=== PATIENT | female | born 1990 | race Hispanic/Latino ===

== ENCOUNTER 2021-04-24 08:01 | Emergency (ER) | payer MEDICAID, OTHER ==
[~2021-04-24] VITALS: Ht 157.5 cm; Wt 114.3 kg
[~2021-04-24 08:01] MED LIST: PREN1TAB26 PO
[2021-04-24] MEDS ORDERED: ACETAMINOPHEN 325 MG TAB PO ONE (08:30)
[2021-04-24] MEDS ORDERED: NAPR-1196 PO (09:53)
[2021-04-24] MEDS ORDERED: CYCL10TA16 PO (09:53)
[2021-04-24 10:06] VITALS: BP 132/81
== END 2021-04-24 10:09 | disposition home or self-care (01) ==
LOC: EDH 08:01
DX: S76.011A Strain of muscle, fascia and tendon of right hip, initial encounter (principal); W01.0XXA Fall on same level from slipping, tripping and stumbling without subsequent striking against object, initial encounter; Y93.89 Activity, other specified; Y92.89 Other specified places as the place of occurrence of the external cause; Y99.8 Other external cause status
CPT/HCPCS: 73522; 81025

== ENCOUNTER 2022-09-10 19:23 | Emergency (ER) | payer OTHER ==
[~2022-09-10] VITALS: Ht 152.4 cm; Wt 112.9 kg
[~2022-09-10 19:23] MED LIST changes: +CYCL10TA16 PO; +NAPR-1196 PO
[2022-09-10 20:00] VITALS: BP 171/87
== END 2022-09-10 22:11 | disposition home or self-care (01) ==
LOC: EDH 19:23
DX: M79.642 Pain in left hand (principal); Z91.040 Latex allergy status; Z79.899 Other long term (current) drug therapy; Z98.890 Other specified postprocedural states
CPT/HCPCS: 99281

== ENCOUNTER 2023-04-30 09:40 | Inpatient (IN) | payer OTHER ==
[~2023-04-30] VITALS: Ht 157.5 cm; Wt 109.9 kg
[2023-04-30 10:04] LABS: BASOPHILS % (AUTO) 0.4 % (0.0-5.0); EOSINOPHILS # (AUTO) 0.23 K/uL (0.00-0.70); EOSINOPHILS % (AUTO) 0.9 % (0.0-8.0); HEMATOCRIT 32.4 % (36-48); LYMPHOCYTES # (AUTO) 1.8 K/uL (1.0-4.8); LYMPHOCYTES % (AUTO) 6.7 % (21.0-51.0); MEAN CORPUSCULAR VOLUME 88.3 fL (79-99); MONOCYTES # (AUTO) 1.3 K/uL (0.1-1.0); MONOCYTES % (AUTO) 4.7 % (3.0-13.0); NEUTROPHILS # (AUTO) 23.2 K/uL (1.8-7.7); NEUTROPHILS % (AUTO) 86.2 % (40.0-77.0); PLATELET COUNT (AUTO) 676 K/uL (130-400); RED BLOOD CELL COUNT(AUTO) 3.67 MIL/uL (4.00-5.50); RED CELL DISTRIBUTION WIDTH 13.2 % (11.0-15.5); WHITE BLOOD COUNT (AUTO) 26.9 K/uL (4.8-10.8)
[2023-04-30 10:16] LABS: INR 1.08 (0.85-1.15); PROTHROMBIN TIME 12.5 SEC (9.6-11.6)
[2023-04-30 10:17] LABS: PARTIAL THROMBOPLASTIN TIME 31.9 SEC (26.3-35.5)
[2023-04-30 10:22] LABS: CREATININE 0.7 mg/dL (0.5-1.5); POTASSIUM 3.2 mmol/L (3.5-5.1)
[2023-04-30 10:27] LABS: ALBUMIN 2.3 g/dL (3.5-5.0); BILIRUBIN,TOTAL 1.6 mg/dL (0.2-1.0); TOTAL PROTEIN, SERUM 8.1 g/dL (6.0-8.3)
[2023-04-30] MEDS ORDERED: HYDROMORPHONE 1 MG INJ ONE (10:51)
[2023-04-30] MEDS ORDERED: ACETAMINOPHEN 325 MG TAB ONE (10:51)
[2023-04-30 10:53] VITALS: TEMP 102
[2023-04-30] MEDS ORDERED: ACETAMINOPHEN 325 MG TAB PO ONE (11:00)
[2023-04-30] MEDS ORDERED: HYDROMORPHONE 1 MG INJ IVP ONE (11:00)
[2023-04-30] MEDS ORDERED: ZOSYN 3.375GM +NS 50ML IV ONE (13:00)
[2023-04-30] MEDS ORDERED: VANCOMYCIN KIT 1 GM/250 ML IV.KIT IV ONE (13:00)
[2023-04-30] MEDS ORDERED: LACTATED RINGERS 1000ML 1,000 ML IV ONE (13:00)
[2023-04-30] MEDS ORDERED: DiphenhydrAMINE HCL 50 MG/ML VIAL IV PRN (13:30)
[2023-04-30] MEDS ORDERED: LACTULOSE 20 GM/30 ML UDCUP PO PRN (13:30)
[2023-04-30] MEDS ORDERED: POTASSIUM CHLORIDE 10% ELIXIR 20 MEQ/15 ML UDCUP PO PRN (13:30)
[2023-04-30] MEDS ORDERED: VANCOMYCIN PROTOCOL PER PHARMACY IV PRN (13:30)
[2023-04-30] MEDS ORDERED: ACETAMINOPHEN 325 MG TAB PO PRN ×2 (13:30)
[2023-04-30] MEDS ORDERED: GUAIFENESIN-DM 200/20 MG 10 ML PO PRN (13:30)
[2023-04-30] MEDS ORDERED: NITROGLYCERIN 0.4 MG SL TAB SL PRN (13:30)
[2023-04-30] MEDS ORDERED: POTASSIUM CHLORIDE 20MEQ/100ML 100 ML IV PRN (13:30)
[2023-04-30] MEDS ORDERED: DIPHENHYDRAMINE HCL 25 MG CAPSULE PO PRN (13:30)
[2023-04-30] MEDS ORDERED: ONDANSETRON 4MG INJ IV PRN (13:30)
[2023-04-30] MEDS ORDERED: HYDROCODONE/ACETAMINOPHEN 5/325 MG TAB PO PRN (13:30)
[2023-04-30] MEDS ORDERED: MAG/ALUM/SIMETH 30 ML UDCUP PO PRN (13:30)
[2023-04-30] MEDS ORDERED: MAGNESIUM 2GM PREMIX 50ML 50 ML IV PRN (13:30)
[2023-04-30] MEDS: 0.9%NACL 1000ML 1,000 ML IV SCH ×2 (13:47→21:45)
[2023-04-30 14:44] LABS: APPEARANCE,URINE CLOUDY (CLEAR); BILIRUBIN,URINE NEGATIVE (NEGATIVE); COLOR,URINE YELLOW (YELLOW); GLUCOSE, URINE (UA) NEGATIVE (NEGATIVE); KETONES,URINE NEGATIVE (NEGATIVE); LEUKOCYTE ESTERASE ,URINE 500 Leu/uL (NEGATIVE); NITRATE,URINE NEGATIVE (NEGATIVE); OCCULT BLOOD,URINE MODERATE (NEGATIVE); PROTEIN,URINE 20 mg/dL (NEGATIVE); UROBILINOGEN,URINE 0.2 mg/dL (0.2-1.0)
[2023-04-30 14:45] LABS: ADD UA MICROSCOPIC YES
[2023-04-30 14:48] LABS: BACTERIA,URINE FEW /HPF (None Seen); MUCUS,URINE RARE LPF (None Seen); SQUAMOUS EPITHELIAL CELL,UR FEW /HPF (0-2); UNCLASSIFIED CRYSTAL 1 /HPF (None Seen)
[2023-04-30 15:18] LABS: AMPHET/METH SCREEN,URINE NEGATIVE (NEGATIVE); BARBITURATE SCREEN, URINE NEGATIVE (NEGATIVE); BENZODIAZEPINES SCREEN,URINE NEGATIVE (NEGATIVE); CANNABINOID SCREEN,URINE NEGATIVE (NEGATIVE); COCAINE SCREEN,URINE NEGATIVE (NEGATIVE); OPIATE SCREEN,URINE NEGATIVE (NEGATIVE); PHENCYCLIDINE SCREEN,URINE NEGATIVE (NEGATIVE)
[2023-04-30 15:26] LABS: ACETAMINOPHEN < 1 mcg/mL (10-30); SALICYLATE < 2.8 mg/dL (2.8-20.0)
[2023-04-30] MEDS: KCL 20 MEQ ERTAB PO PRN ×2 (16:05→18:30)
[2023-04-30 16:20] VITALS: BP 123/70; PULSE 115; RESP 16
[2023-04-30] MEDS: HYDROCODONE/ACETAMINOPHEN 5/325 MG TAB PO PRN ×2 (17:24→23:52)
[2023-04-30] MEDS ORDERED: COMPOUND IV REFRIGERATED 1 EACH IVSOLN MISC PRN (18:00)
[2023-04-30 20:00] VITALS: BP 111/65; PULSE 110; RESP 19
[2023-04-30] MEDS ORDERED: FAMOTIDINE 20MG VIAL IV PRN (21:00)
[2023-04-30] MEDS: VANCOMYCIN 1.25 GM/250 ML BAG 250 ML IV SCH (21:45)
[2023-04-30] MEDS: FAMOTIDINE 20MG TAB PO SCH (21:50)
[2023-04-30] MEDS: ZOSYN 3.375GM+NS 50ML 50 ML IV SCH (22:03)
[2023-04-30 23:44] VITALS: BP 110/75; PULSE 106; RESP 19
[2023-05-01] VITALS (8 sets, daily range): BP systolic 117–145; BP diastolic 54–88; PULSE 59–111; RESP 16–20; O2SAT 97
[2023-05-01] MEDS: 0.9%NACL 1000ML 1,000 ML IV SCH ×3 (02:10→14:05)
[2023-05-01 04:28] LABS: BASOPHILS # (AUTO) 0.06 K/uL (0.00-0.20); BASOPHILS % (AUTO) 0.4 % (0.0-5.0); EOSINOPHILS # (AUTO) 0.57 K/uL (0.00-0.70); EOSINOPHILS % (AUTO) 3.5 % (0.0-8.0); HEMATOCRIT 29.3 % (36-48); IMMATURE GRANULOCYTE ABSOLUTE 0.17 K/uL (0-1); LYMPHOCYTES # (AUTO) 1.5 K/uL (1.0-4.8); LYMPHOCYTES % (AUTO) 9.5 % (21.0-51.0); MEAN CORPUSCULAR HEMOGLOBIN 29.5 pg (27.0-33.0); MEAN CORPUSCULAR HGB CONC 32.4 g/dL (32.0-36.0); MONOCYTES # (AUTO) 0.8 K/uL (0.1-1.0); MONOCYTES % (AUTO) 4.9 % (3.0-13.0); NEUTROPHILS % (AUTO) 80.6 % (40.0-77.0); PLATELET COUNT (AUTO) 599 K/uL (130-400); RED BLOOD CELL COUNT(AUTO) 3.22 MIL/uL (4.00-5.50); RED CELL DISTRIBUTION WIDTH 13.2 % (11.0-15.5); WHITE BLOOD COUNT (AUTO) 16.1 K/uL (4.8-10.8)
[2023-05-01 04:32] LABS: HEMOGLOBIN A1C 5.1 % (4.0-6.0)
[2023-05-01 04:33] LABS: INR 1.06 (0.85-1.15); PROTHROMBIN TIME 12.3 SEC (9.6-11.6)
[2023-05-01 04:34] LABS: PARTIAL THROMBOPLASTIN TIME 31.9 SEC (26.3-35.5)
[2023-05-01 04:44] LABS: % IRON SATURATION 16.9 % (22-44)
[2023-05-01 04:50] LABS: ALBUMIN 1.7 g/dL (3.5-5.0); BILIRUBIN,TOTAL 0.6 mg/dL (0.2-1.0); CREATININE 0.6 mg/dL (0.5-1.5); MAGNESIUM 2.1 mg/dL (1.80-2.40); PHOSPHORUS 3.4 mg/dL (2.5-4.9); POTASSIUM 3.4 mmol/L (3.5-5.1); THYROID STIMULATING HORMONE 1.64 uIU/mL (0.36-3.74); TOTAL PROTEIN, SERUM 6.5 g/dL (6.0-8.3)
[2023-05-01 05:01] LABS: HIV 1&2 ANTIBODY Non-Reactive (Negative); HIV-1 p24 Antigen Non-Reactive (Negative)
[2023-05-01] MEDS: VANCOMYCIN 1.25 GM/250 ML BAG 250 ML IV SCH ×2 (06:07→13:00)
[2023-05-01] MEDS: ZOSYN 3.375GM+NS 50ML 50 ML IV SCH ×3 (06:08→21:05)
[2023-05-01] MEDS: KCL 20 MEQ ERTAB PO PRN ×2 (06:35→11:36)
[2023-05-01] MEDS: ENOXAPARIN SODIUM 40 MG/0.4 ML SYRINGE SQ SCH (09:58)
[2023-05-01] MEDS: FAMOTIDINE 20MG TAB PO SCH ×2 (09:58→21:05)
[2023-05-01] MEDS: HYDROMORPHONE 1 MG INJ IV PRN (15:07)
[2023-05-02] VITALS (7 sets, daily range): BP systolic 123–135; BP diastolic 73–88; PULSE 95–105; RESP 16–20; O2SAT 98
[2023-05-02] MEDS: 0.9%NACL 1000ML 1,000 ML IV SCH ×4 (00:05→14:49)
[2023-05-02] MEDS: HYDROCODONE/ACETAMINOPHEN 5/325 MG TAB PO PRN ×3 (00:39→17:43)
[2023-05-02 04:46] LABS: BASOPHILS # (AUTO) 0.08 K/uL (0.00-0.20); BASOPHILS % (AUTO) 0.6 % (0.0-5.0); EOSINOPHILS # (AUTO) 0.55 K/uL (0.00-0.70); EOSINOPHILS % (AUTO) 4.3 % (0.0-8.0); IMMATURE GRANULOCYTE ABSOLUTE 0.26 K/uL (0-1); LYMPHOCYTES # (AUTO) 2.5 K/uL (1.0-4.8); LYMPHOCYTES % (AUTO) 19.7 % (21.0-51.0); MEAN CORPUSCULAR HEMOGLOBIN 29.5 pg (27.0-33.0); MEAN CORPUSCULAR HGB CONC 32.5 g/dL (32.0-36.0); MEAN CORPUSCULAR VOLUME 90.7 fL (79-99); MONOCYTES # (AUTO) 0.5 K/uL (0.1-1.0); MONOCYTES % (AUTO) 4.2 % (3.0-13.0); NEUTROPHILS # (AUTO) 8.8 K/uL (1.8-7.7); NEUTROPHILS % (AUTO) 69.2 % (40.0-77.0); RED BLOOD CELL COUNT(AUTO) 3.53 MIL/uL (4.00-5.50); RED CELL DISTRIBUTION WIDTH 13.2 % (11.0-15.5); WHITE BLOOD COUNT (AUTO) 12.7 K/uL (4.8-10.8)
[2023-05-02 04:56] LABS: PLATELET COUNT (AUTO) 733 K/uL (130-400)
[2023-05-02] MEDS: ZOSYN 3.375GM+NS 50ML 50 ML IV SCH ×3 (05:24→20:32)
[2023-05-02 05:28] LABS: ALBUMIN 2.3 g/dL (3.5-5.0); BILIRUBIN,TOTAL 0.5 mg/dL (0.2-1.0); CREATININE 0.6 mg/dL (0.5-1.5); POTASSIUM 3.6 mmol/L (3.5-5.1)
[2023-05-02 06:00] LABS: HEPATITIS A IGM ANTIBODY Non-Reactive (Nonreactive); HEPATITIS B CORE IGM ANTIBODY Non-Reactive (Negative); HEPATITIS B SURFACE ANTIGEN Non-Reactive (Nonreactive); HEPATITIS C ANTIBODY Non-Reactive (Nonreactive)
[2023-05-02] MEDS: FAMOTIDINE 20MG TAB PO SCH ×2 (09:31→20:33)
[2023-05-02] MEDS: ENOXAPARIN SODIUM 40 MG/0.4 ML SYRINGE SQ SCH (09:31)
[2023-05-03] VITALS: BP 143/93; PULSE 95; RESP 18
[2023-05-03] MEDS: 0.9%NACL 1000ML 1,000 ML IV SCH ×4 (00:08→21:30)
[2023-05-03] MEDS: HYDROMORPHONE 1 MG INJ IV PRN ×2 (00:11→14:26)
[2023-05-03 04:00] VITALS: BP 145/87; PULSE 99; RESP 18
[2023-05-03] MEDS: ZOSYN 3.375GM+NS 50ML 50 ML IV SCH ×3 (04:07→20:52)
[2023-05-03] MEDS ORDERED: BETA15CR5 TP (04:17)
[2023-05-03] MEDS ORDERED: GENT15CR7 TP (04:17)
[2023-05-03] MEDS ORDERED: CLOT15CR23 TP (04:17)
[2023-05-03] MEDS ORDERED: TRIAM15CRM TP (04:17)
[2023-05-03 04:22] LABS: BASOPHILS # (AUTO) 0.04 K/uL (0.00-0.20); BASOPHILS % (AUTO) 0.5 % (0.0-5.0); EOSINOPHILS # (AUTO) 0.58 K/uL (0.00-0.70); EOSINOPHILS % (AUTO) 6.5 % (0.0-8.0); HEMATOCRIT 28.9 % (36-48); IMMATURE GRANULOCYTE ABSOLUTE 0.19 K/uL (0-1); LYMPHOCYTES # (AUTO) 2.2 K/uL (1.0-4.8); LYMPHOCYTES % (AUTO) 24.4 % (21.0-51.0); MEAN CORPUSCULAR HEMOGLOBIN 29.8 pg (27.0-33.0); MEAN CORPUSCULAR HGB CONC 32.2 g/dL (32.0-36.0); MEAN CORPUSCULAR VOLUME 92.6 fL (79-99); MONOCYTES # (AUTO) 0.4 K/uL (0.1-1.0); MONOCYTES % (AUTO) 4.5 % (3.0-13.0); NEUTROPHILS # (AUTO) 5.5 K/uL (1.8-7.7); PLATELET COUNT (AUTO) 619 K/uL (130-400); RED BLOOD CELL COUNT(AUTO) 3.12 MIL/uL (4.00-5.50); RED CELL DISTRIBUTION WIDTH 13.3 % (11.0-15.5); WHITE BLOOD COUNT (AUTO) 8.9 K/uL (4.8-10.8)
[2023-05-03 04:34] LABS: ALBUMIN 1.9 g/dL (3.5-5.0); BILIRUBIN,TOTAL 0.2 mg/dL (0.2-1.0); CREATININE 0.7 mg/dL (0.5-1.5); TOTAL PROTEIN, SERUM 6.5 g/dL (6.0-8.3)
[2023-05-03 08:00] VITALS: BP 127/68; PULSE 108; RESP 16; O2SAT 98
[2023-05-03] MEDS: HYDROCODONE/ACETAMINOPHEN 5/325 MG TAB PO PRN ×2 (09:32→18:15)
[2023-05-03] MEDS: ENOXAPARIN SODIUM 40 MG/0.4 ML SYRINGE SQ SCH (09:32)
[2023-05-03] MEDS: FAMOTIDINE 20MG TAB PO SCH ×2 (09:33→20:52)
[2023-05-03 11:47] VITALS: BP 132/79; PULSE 89; RESP 16
[2023-05-03 15:37] VITALS: BP 132/80; PULSE 92; RESP 16
[2023-05-03 20:00] VITALS: BP 135/75; PULSE 96; RESP 17; O2SAT 98
[2023-05-04] VITALS: BP 133/81; PULSE 84; RESP 17
[2023-05-04] MEDS: HYDROCODONE/ACETAMINOPHEN 5/325 MG TAB PO PRN ×2 (02:49→12:45)
[2023-05-04 04:00] VITALS: BP 126/77; PULSE 86; RESP 17
[2023-05-04] MEDS: 0.9%NACL 1000ML 1,000 ML IV SCH ×3 (04:10→17:30)
[2023-05-04] MEDS: ZOSYN 3.375GM+NS 50ML 50 ML IV SCH ×3 (04:56→20:27)
[2023-05-04 08:00] VITALS: BP 142/90; PULSE 89; RESP 18; O2SAT 98
[2023-05-04] MEDS: ENOXAPARIN SODIUM 40 MG/0.4 ML SYRINGE SQ SCH (08:34)
[2023-05-04] MEDS: FAMOTIDINE 20MG TAB PO SCH ×2 (09:00→20:27)
[2023-05-04 11:55] VITALS: BP 132/74; PULSE 87; RESP 17
[2023-05-04] MEDS: HYDROMORPHONE 1 MG INJ IV PRN (15:16)
[2023-05-04 16:00] VITALS: BP 125/74; PULSE 83; RESP 18
[2023-05-04 20:00] VITALS: BP 123/79; PULSE 82; RESP 19; O2SAT 98
[2023-05-05] VITALS: BP 134/79; PULSE 80; RESP 18
[2023-05-05] MEDS: HYDROCODONE/ACETAMINOPHEN 5/325 MG TAB PO PRN (00:39)
[2023-05-05] MEDS: 0.9%NACL 1000ML 1,000 ML IV SCH ×4 (01:49→19:53)
[2023-05-05 03:57] LABS: BASOPHILS # (AUTO) 0.05 K/uL (0.00-0.20); BASOPHILS % (AUTO) 0.5 % (0.0-5.0); EOSINOPHILS # (AUTO) 0.65 K/uL (0.00-0.70); EOSINOPHILS % (AUTO) 6.1 % (0.0-8.0); HEMATOCRIT 31.6 % (36-48); IMMATURE GRANULOCYTE ABSOLUTE 0.21 K/uL (0-1); LYMPHOCYTES # (AUTO) 2.1 K/uL (1.0-4.8); LYMPHOCYTES % (AUTO) 19.9 % (21.0-51.0); MEAN CORPUSCULAR HEMOGLOBIN 30.2 pg (27.0-33.0); MEAN CORPUSCULAR HGB CONC 32.6 g/dL (32.0-36.0); MEAN CORPUSCULAR VOLUME 92.7 fL (79-99); MONOCYTES # (AUTO) 0.4 K/uL (0.1-1.0); MONOCYTES % (AUTO) 4.2 % (3.0-13.0); NEUTROPHILS # (AUTO) 7.1 K/uL (1.8-7.7); NEUTROPHILS % (AUTO) 67.3 % (40.0-77.0); PLATELET COUNT (AUTO) 615 K/uL (130-400); RED BLOOD CELL COUNT(AUTO) 3.41 MIL/uL (4.00-5.50); RED CELL DISTRIBUTION WIDTH 13.4 % (11.0-15.5); WHITE BLOOD COUNT (AUTO) 10.6 K/uL (4.8-10.8)
[2023-05-05 04:00] VITALS: BP 133/79; PULSE 84; RESP 20
[2023-05-05 04:03] LABS: ALBUMIN 2.3 g/dL (3.5-5.0); BILIRUBIN,TOTAL 0.3 mg/dL (0.2-1.0); CREATININE 0.8 mg/dL (0.5-1.5); POTASSIUM 4.6 mmol/L (3.5-5.1)
[2023-05-05] MEDS: ZOSYN 3.375GM+NS 50ML 50 ML IV SCH ×3 (04:04→20:52)
[2023-05-05 08:00] VITALS: BP 135/85; PULSE 88; RESP 18; O2SAT 98
[2023-05-05] MEDS: ENOXAPARIN SODIUM 40 MG/0.4 ML SYRINGE SQ SCH (09:01)
[2023-05-05] MEDS: FAMOTIDINE 20MG TAB PO SCH ×2 (09:01→20:52)
[2023-05-05 10:40] VITALS: BP 154/87; PULSE 85; RESP 16
[2023-05-05 16:00] VITALS: BP 133/72; PULSE 105; RESP 16
[2023-05-05] MEDS ORDERED: ONDANSETRON 4MG TABLET PO PRN (17:30)
[2023-05-05 20:00] VITALS: BP 141/77; PULSE 100; RESP 19
[2023-05-05] MEDS: HYDROCODONE/ACETAMINOPHEN 10/325 MG TAB PO PRN (20:52)
[2023-05-06] VITALS: BP 122/78; PULSE 92; RESP 19
[2023-05-06 03:51] VITALS: O2SAT 95
[2023-05-06 03:52] VITALS: BP 109/66; PULSE 89; RESP 19
[2023-05-06 05:24] LABS: BASOPHILS # (AUTO) 0.06 K/uL (0.00-0.20); BASOPHILS % (AUTO) 0.5 % (0.0-5.0); EOSINOPHILS # (AUTO) 0.69 K/uL (0.00-0.70); EOSINOPHILS % (AUTO) 6.2 % (0.0-8.0); IMMATURE GRANULOCYTE ABSOLUTE 0.25 K/uL (0-1); LYMPHOCYTES # (AUTO) 2.2 K/uL (1.0-4.8); LYMPHOCYTES % (AUTO) 19.9 % (21.0-51.0); MEAN CORPUSCULAR HEMOGLOBIN 29.3 pg (27.0-33.0); MEAN CORPUSCULAR HGB CONC 31.8 g/dL (32.0-36.0); MEAN CORPUSCULAR VOLUME 92.2 fL (79-99); MONOCYTES # (AUTO) 0.4 K/uL (0.1-1.0); MONOCYTES % (AUTO) 3.7 % (3.0-13.0); NEUTROPHILS # (AUTO) 7.6 K/uL (1.8-7.7); NEUTROPHILS % (AUTO) 67.5 % (40.0-77.0); PLATELET COUNT (AUTO) 650 K/uL (130-400); RED BLOOD CELL COUNT(AUTO) 3.58 MIL/uL (4.00-5.50); RED CELL DISTRIBUTION WIDTH 13.6 % (11.0-15.5); WHITE BLOOD COUNT (AUTO) 11.2 K/uL (4.8-10.8)
[2023-05-06 05:50] LABS: ALBUMIN 2.5 g/dL (3.5-5.0); BILIRUBIN,TOTAL 0.2 mg/dL (0.2-1.0); CREATININE 0.9 mg/dL (0.5-1.5); POTASSIUM 4.2 mmol/L (3.5-5.1); TOTAL PROTEIN, SERUM 6.9 g/dL (6.0-8.3)
[2023-05-06 08:00] VITALS: BP 126/81; PULSE 82; RESP 18; O2SAT 95
[2023-05-06] MEDS: FAMOTIDINE 20MG TAB PO SCH (09:23)
[2023-05-06] MEDS: ENOXAPARIN SODIUM 40 MG/0.4 ML SYRINGE SQ SCH (09:27)
[2023-05-06 11:00] VITALS: BP 125/74; PULSE 90; RESP 18
[2023-05-06] MEDS ORDERED: ACET-2079 PO (14:31)
[2023-05-06 16:00] VITALS: BP 133/73; PULSE 89; RESP 16
[2023-05-06] MEDS: HYDROCODONE/ACETAMINOPHEN 10/325 MG TAB PO PRN (16:21)
== END 2023-05-06 18:55 | disposition home health service (06) | DRG 854 ==
LOC: EDH 09:40 → EDHIP 13:09 → 4BH 16:20 → 3BH 05-05 10:40
PROVIDERS: ADMIT Internal Medicine; ATTEND Internal Medicine
PROC: 0Y950ZZ Drainage of Right Inguinal Region, Open Approach (ICD-10-PCS; principal; 2023-04-30)
DX: A40.0 Sepsis due to streptococcus, group A (principal); E87.1 Hypo-osmolality and hyponatremia; L03.314 Cellulitis of groin; Z68.41 Body mass index [BMI] 40.0-44.9, adult; E66.01 Morbid (severe) obesity due to excess calories; D50.9 Iron deficiency anemia, unspecified; E87.6 Hypokalemia; F17.210 Nicotine dependence, cigarettes, uncomplicated
CPT/HCPCS: 36415; 76857; 80053; 80074; 80305; 81001; 82550; 82728; 83036; 83540; 83550; 83605; 83615; 83735; 84100; 84145; 84443; 84484; 85025; 85610; 85651; 85730; 86140; 86701; 87040; 87070; 87076; 87088; 87390; A6266; A6407; G0378; G0481; J1170; J1650; J2543; J3370; J7120; 3370

== ENCOUNTER → 2023-05-10 | Outpatient (CLI) | payer OTHER ==
[~2023-05-10] MED LIST changes: +ACET-2079 PO; +BETA15CR5 TP; +CLOT15CR23 TP; -CYCL10TA16 PO; +GENT15CR7 TP; +LIDOCAINE HCL 4% LTA SOL 4 ML VIAL TP ONE; -NAPR-1196 PO; -PREN1TAB26 PO; +TRIAM15CRM TP
== END | disposition home or self-care (01) ==
LOC: WHH 09:04
PROVIDERS: ATTEND Nurse Practitioner Family
DX: T81.89XA Other complications of procedures, not elsewhere classified, initial encounter (principal); L98.492 Non-pressure chronic ulcer of skin of other sites with fat layer exposed; D50.9 Iron deficiency anemia, unspecified; E66.01 Morbid (severe) obesity due to excess calories; F17.210 Nicotine dependence, cigarettes, uncomplicated; Z68.41 Body mass index [BMI] 40.0-44.9, adult; Z79.899 Other long term (current) drug therapy; Y83.8 Other surgical procedures as the cause of abnormal reaction of the patient, or of later complication, without mention of misadventure at the time of the procedure; Y92.89 Other specified places as the place of occurrence of the external cause
CPT/HCPCS: 11042; A6248; A6209; A6197; A4450

== ENCOUNTER → 2023-05-18 | Outpatient (CLI) | payer OTHER | END | disposition home or self-care (01) | LOC: WHH 07:59 | PROVIDERS: ATTEND Nurse Practitioner Family | DX: T81.89XD Other complications of procedures, not elsewhere classified, subsequent encounter (principal); L98.492 Non-pressure chronic ulcer of skin of other sites with fat layer exposed; D50.9 Iron deficiency anemia, unspecified; I10 Essential (primary) hypertension; E66.01 Morbid (severe) obesity due to excess calories; F17.210 Nicotine dependence, cigarettes, uncomplicated; Z68.41 Body mass index [BMI] 40.0-44.9, adult; Z79.899 Other long term (current) drug therapy; Y83.8 Other surgical procedures as the cause of abnormal reaction of the patient, or of later complication, without mention of misadventure at the time of the procedure; Y92.89 Other specified places as the place of occurrence of the external cause | CPT/HCPCS: 11042 ==

== ENCOUNTER → 2023-05-24 | Outpatient (CLI) | payer OTHER | END | disposition home or self-care (01) | LOC: WHH 07:48 | PROVIDERS: ATTEND Nurse Practitioner Family | DX: T81.89XD Other complications of procedures, not elsewhere classified, subsequent encounter (principal); L98.492 Non-pressure chronic ulcer of skin of other sites with fat layer exposed; D50.9 Iron deficiency anemia, unspecified; I10 Essential (primary) hypertension; E66.01 Morbid (severe) obesity due to excess calories; F17.210 Nicotine dependence, cigarettes, uncomplicated; Z68.41 Body mass index [BMI] 40.0-44.9, adult; Z79.899 Other long term (current) drug therapy; Y83.8 Other surgical procedures as the cause of abnormal reaction of the patient, or of later complication, without mention of misadventure at the time of the procedure | CPT/HCPCS: 99214; A6248; A6209; A6260 ==

== ENCOUNTER → 2023-06-01 | Outpatient (CLI) | payer OTHER ==
[~2023-06-01] MED LIST changes: -LIDOCAINE HCL 4% LTA SOL 4 ML VIAL TP ONE
== END | disposition home or self-care (01) ==
LOC: WHH 08:04
PROVIDERS: ATTEND Nurse Practitioner Family
DX: T81.89XD Other complications of procedures, not elsewhere classified, subsequent encounter (principal); L98.492 Non-pressure chronic ulcer of skin of other sites with fat layer exposed; D50.9 Iron deficiency anemia, unspecified; I10 Essential (primary) hypertension; E66.01 Morbid (severe) obesity due to excess calories; F17.210 Nicotine dependence, cigarettes, uncomplicated; Z68.41 Body mass index [BMI] 40.0-44.9, adult; Z79.899 Other long term (current) drug therapy; Y83.8 Other surgical procedures as the cause of abnormal reaction of the patient, or of later complication, without mention of misadventure at the time of the procedure
CPT/HCPCS: 99214; A6209; A6197

== ENCOUNTER → 2023-06-08 | Outpatient (CLI) | payer OTHER ==
[~2023-06-08] MED LIST changes: +LIDOCAINE HCL 4% LTA SOL 4 ML VIAL TP ONE
== END | disposition home or self-care (01) ==
LOC: WHH 07:49
PROVIDERS: ATTEND Nurse Practitioner Family
DX: T81.89XD Other complications of procedures, not elsewhere classified, subsequent encounter (principal); L98.492 Non-pressure chronic ulcer of skin of other sites with fat layer exposed; D50.9 Iron deficiency anemia, unspecified; I10 Essential (primary) hypertension; E66.01 Morbid (severe) obesity due to excess calories; F17.210 Nicotine dependence, cigarettes, uncomplicated; Z68.41 Body mass index [BMI] 40.0-44.9, adult; Z79.899 Other long term (current) drug therapy; Y83.8 Other surgical procedures as the cause of abnormal reaction of the patient, or of later complication, without mention of misadventure at the time of the procedure
CPT/HCPCS: 99214; A6209; A4450

== ENCOUNTER → 2023-06-14 | Outpatient (CLI) | payer OTHER | END | disposition home or self-care (01) | LOC: WHH 08:06 | PROVIDERS: ATTEND Nurse Practitioner Family | DX: T81.89XD Other complications of procedures, not elsewhere classified, subsequent encounter (principal); L98.492 Non-pressure chronic ulcer of skin of other sites with fat layer exposed; D50.9 Iron deficiency anemia, unspecified; I10 Essential (primary) hypertension; E66.01 Morbid (severe) obesity due to excess calories; F17.210 Nicotine dependence, cigarettes, uncomplicated; Z68.41 Body mass index [BMI] 40.0-44.9, adult; Z79.899 Other long term (current) drug therapy; Y83.8 Other surgical procedures as the cause of abnormal reaction of the patient, or of later complication, without mention of misadventure at the time of the procedure | CPT/HCPCS: 11042; A6021; A6197 ==

== ENCOUNTER → 2023-06-21 | Outpatient (CLI) | payer OTHER | END | disposition home or self-care (01) | LOC: WHH 07:48 | PROVIDERS: ATTEND Nurse Practitioner Family | DX: T81.89XD Other complications of procedures, not elsewhere classified, subsequent encounter (principal); S31.502D Unspecified open wound of unspecified external genital organs, female, subsequent encounter; L98.492 Non-pressure chronic ulcer of skin of other sites with fat layer exposed; D50.9 Iron deficiency anemia, unspecified; I10 Essential (primary) hypertension; E66.01 Morbid (severe) obesity due to excess calories; F17.210 Nicotine dependence, cigarettes, uncomplicated; Z68.41 Body mass index [BMI] 40.0-44.9, adult; Z79.899 Other long term (current) drug therapy; Y83.8 Other surgical procedures as the cause of abnormal reaction of the patient, or of later complication, without mention of misadventure at the time of the procedure; X58.XXXD Exposure to other specified factors, subsequent encounter | CPT/HCPCS: 99214; A6021; A6197 ==

== ENCOUNTER → 2023-06-28 | Outpatient (CLI) | payer OTHER | END | disposition home or self-care (01) | LOC: WHH 07:57 | PROVIDERS: ATTEND Nurse Practitioner Family | DX: T81.89XD Other complications of procedures, not elsewhere classified, subsequent encounter (principal); S31.502D Unspecified open wound of unspecified external genital organs, female, subsequent encounter; D50.9 Iron deficiency anemia, unspecified; I10 Essential (primary) hypertension; E66.01 Morbid (severe) obesity due to excess calories; F17.210 Nicotine dependence, cigarettes, uncomplicated; Z68.41 Body mass index [BMI] 40.0-44.9, adult; Z79.899 Other long term (current) drug therapy; X58.XXXD Exposure to other specified factors, subsequent encounter; Y83.8 Other surgical procedures as the cause of abnormal reaction of the patient, or of later complication, without mention of misadventure at the time of the procedure | CPT/HCPCS: 99214; A6021; A6196 ==

== ENCOUNTER 2023-07-05 08:12 | Outpatient (CLI) | payer OTHER ==
[~2023-07-05 08:12] MED LIST changes: -LIDOCAINE HCL 4% LTA SOL 4 ML VIAL TP ONE
== END 2023-07-05 15:17 | disposition home or self-care (01) ==
LOC: WHH 08:12
PROVIDERS: ATTEND Nurse Practitioner Family
DX: T81.89XD Other complications of procedures, not elsewhere classified, subsequent encounter (principal); S31.502D Unspecified open wound of unspecified external genital organs, female, subsequent encounter; L98.498 Non-pressure chronic ulcer of skin of other sites with other specified severity; D50.9 Iron deficiency anemia, unspecified; I10 Essential (primary) hypertension; E66.01 Morbid (severe) obesity due to excess calories; F17.210 Nicotine dependence, cigarettes, uncomplicated; Z68.41 Body mass index [BMI] 40.0-44.9, adult; Z79.899 Other long term (current) drug therapy; Y83.8 Other surgical procedures as the cause of abnormal reaction of the patient, or of later complication, without mention of misadventure at the time of the procedure; X58.XXXD Exposure to other specified factors, subsequent encounter
CPT/HCPCS: 99214

== ENCOUNTER 2023-07-15 21:16 | Emergency (ER) | payer OTHER ==
[~2023-07-15] VITALS: Ht 157.5 cm; Wt 117.2 kg
[2023-07-16] MEDS: BACITRACIN 1 EACH PACKET TP ONE (04:24)
[2023-07-16 04:44] VITALS: BP 147/73; PULSE 88; RESP 17; O2SAT 98
== END 2023-07-16 04:46 | disposition home or self-care (01) ==
LOC: EDH 21:16
DX: T23.101A Burn of first degree of right hand, unspecified site, initial encounter (principal); T31.0 Burns involving less than 10% of body surface; Z79.899 Other long term (current) drug therapy; Z98.890 Other specified postprocedural states; Z88.8 Allergy status to other drugs, medicaments and biological substances; X17.XXXA Contact with hot engines, machinery and tools, initial encounter; Y93.89 Activity, other specified; Y92.89 Other specified places as the place of occurrence of the external cause; Y99.8 Other external cause status
CPT/HCPCS: 16000; 99282

== ENCOUNTER 2024-03-04 02:23 | Emergency (ER) | payer OTHER ==
[~2024-03-04] VITALS: Ht 157.5 cm; Wt 116.1 kg
[2024-03-04 02:33] VITALS: BP 132/74; PULSE 84; RESP 20; TEMP 98.9; O2SAT 98
[2024-03-04] MEDS: acetaMINOPHEN/coDEINE 120/12MG 5ML PO STA (02:39)
[2024-03-04 02:46] LABS: RAPID GROUP A STREP negative (NEGATIVE)
[2024-03-04 02:52] LABS: SARS-CoV-2, RNA, NAAT NEGATIVE SARS CoV-2 (NEGATIVE)
[2024-03-04 02:56] LABS: INFLUENZA TYPE A Negative For Type A (NEGATIVE); INFLUENZA TYPE B Negative For Type B (NEGATIVE)
[2024-03-04] MEDS ORDERED: LORA10TA7 PO (03:03)
[2024-03-04] MEDS ORDERED: AMOX1TAB16 PO (03:03)
[2024-03-04] MEDS ORDERED: FLUT16H NASAL (03:03)
== END 2024-03-04 03:06 | disposition home or self-care (01) ==
LOC: EDH 02:23
DX: J32.9 Chronic sinusitis, unspecified (principal); Z91.040 Latex allergy status; Z20.822 Contact with and (suspected) exposure to COVID-19
CPT/HCPCS: 81025; 87635; 87804; 87880

== ENCOUNTER 2024-05-16 08:46 | Emergency (ER) | payer OTHER ==
[~2024-05-16] VITALS: Ht 157.5 cm; Wt 116.6 kg
[~2024-05-16 08:46] MED LIST changes: +AMOX1TAB16 PO; +BETA15CR12 TP; -BETA15CR5 TP; +FLUT16H NASAL; +LORA10TA7 PO
[2024-05-16] MEDS: 0.9%NACL 1000ML 1,000 ML IV ONE (09:22)
[2024-05-16] MEDS: dexaMETHasone SOD PHOSPHATE 4 MG/ML 1ML VIAL IVP ONE (09:22)
--- NOTE | 2024-05-16 09:22 | ERN ---
ED Note History of Present Illness Stated Complaint: FLU LIKE SYMPTOMS Chief Complaint: Flu Symptoms Time Seen by MD: 08:44 Dictation: Patient is a 33-year-old female with a past medical history of hypertension and eczema who is here because she is not feeling well. Patient complains of fevers, chills, and body aches. She also has sinus pressure and pain in both ears. She states her symptoms began on Wednesday. She denies cough, chest pain, and shortness of breath. She admits to a decreased appetite, some nausea and one vomiting episode on Wednesday. Patient admits to smoking up to five cigarettes daily. Allergies: Coded Allergies: latex (Unverified Allergy, Unknown, HIVES, 02/04/17) orange (Unverified Adverse Reaction, Severe, UNKNOWN, 05/01/23) ANAPHYLAXIS :PER PATIENT ALLERGIC TO ORANGE FRUIT AND CITRI JUICES ON SKIN Home Meds Active Scripts Amoxicillin/Potassium Clav (Amox Tr-K Clv 875-125 mg Tab) 875 Mg-125 Mg Tablet, 1 EACH PO BID for 7 Days, #14 TAB Prov:KOKI AMATO MD 05/16/24 Loratadine (Loratadine) 10 Mg Tablet, 10 MG PO DAILY for 30 Days, #30 TAB Prov:FLORENCIO DE LEÓN MD 03/04/24 Fluticasone Propionate (Flonase Nasal [place]) 50 Mcg/Actuation [place], 50 MCG NASAL BID for 14 Days, #60 SPRAY Prov:FLORENCIO DE LEÓN MD 03/04/24 Acetaminophen with Codeine (Acetaminophen-Cod #3 Tablet) 300 Mg-30 Mg Tablet, 1 EACH PO Q6HPRN PRN for MODERATE PAIN (4-6), #15 TAB 0 Refills Prov:TERA SHERMAN AGPCMAGGI 05/06/23 Reported Medications Clotrimazole (Clotrimazole) 1 % Cream..g., 15 GM TP TID TO HANDS 05/03/23 Gentamicin Sulfate (Gentamicin Sulfate) 0.1 % Cream..g., 15 GM TP TID TO HANDS 05/03/23 Betamethasone/Propylene Glyc (Betamethasone Dp Aug 0.05% Crm) 0.05 % Cream..g., 15 GM TP TID TO HANDS 05/03/23 Triamcinolone Acetonide (Triamcinolone Acetonide) 0.1 % Cream.gm., 15 GM TP TID, APPL TO LEGS 05/03/23 Past Medical History Past Medical History: Hypertension Additional Past Medical Hx: ECZEMA Surgical History: Surgical History Other: RT KNEE Social History: Negative LMP: May 13, 2024 : 2 Para: 2 Aborts: 0 Review of System Dictation Constitutional-no weight loss/gain, positive for fever, chills, decreased appetite and body aches Eyes-no injury, pain, redness and discharge ENT-no injury, pain, swelling. bilateral ear pain. Frontal and sphenoid sinus pressure Cardiovascular no chest pain, palpitations, edema Respiratory no shortness of breath, cough, wheezing Abdomen/GI-no abdominal pain, diarrhea, constipation. vomiting has resolved, positive for nausea Back no injury and pain Genitourinary no injury, bleeding and discharge Musculoskeletal/extremities no injury, deformity Skin no rash, discoloration Neuro-no weakness, numbness, tingling, seizures, tremors. Psych-no suicidal ideation, homicidal ideation, hallucinations, depression, anxiety, memory loss Initial Vital Sign VS Vital Signs Date Time Temp Pulse Resp B/P (MAP) Pulse Ox O2 Delivery O2 Flow Rate FiO2 05/16/24 08:47 100.6 116 20 153/102 98 Room Air 0 05/16/24 09:00 21 Physical Exam Dictation General-patient is awake alert and oriented Head/neck-normocephalic, atraumatic. Tenderness to palpation of frontal and sphenoid sinuses. Eyes-PERRL, EOMI, vision at baseline Neck-trachea midline, supple, no nuchal rigidity Cardiovascular-RRR, normal S1/S2, no MRG is, no JVD Respiratory-no distress, wheezing, rales, rhonchi Abdomen-no tenderness, guarding, soft, nondistended Skin warm, dry, normal turgor, no rash Musculoskeletal/extremities pulses equal, no cyanosis Neuro-COA X 4, GCS 15, strength 5/5, CN 2-12 intact Psych-normal behavior, mood and affect normal Results (Laboratory/Radiology) Laboratory/Radiology ED Course ED Course Medical Decision Making MDM MDM INITIAL IMPRESSION Initial history and physical concerning for sinusitis, flu. Contributing medical problems: I have reviewed the triage nursing notes and vital signs. Initial plan: Laboratory evaluation DATA REVIEW I have reviewed additional NN, repeat VS, and monitoring where indicated. Heart rate, blood pressure, and O2 saturation are acceptable. ED COURSE Interventions: Fluids Reassessment: DISPOSITION Final diagnostic impression: Sinusitis I discussed my findings, clinical impression and treatment recommendations with the patient. My final plan for disposition was made based upon -mild risk of complications and potential morbidity of the patient's condition. -Discussion with the patient regarding management options. Patient will be discharged on antibiotics and advised to follow up with PCP to repeat CBC and evaluate for leukopenia. DX & DISP Disposition: Discharge Departure Impression: Primary Impression: Sinusitis Additional Impression: Ear pain Condition: Stable Scripts Amoxicillin/Potassium Clav (Amox Tr-K Clv 875-125 mg Tab) 875 Mg-125 Mg Tablet 1 EACH PO BID for 7 Days, #14 TAB Prov: KOKI AMATO MD 05/16/24 Additional Instructions: Take antibiotics as prescribed. Drink plenty of clear fluids. Sleep with her head and shoulders elevated to help with drainage. Avoid smoking, as nicotine and other chemicals and cigarettes can make symptoms worse. Follow up with PCP for repeat CBC to evaluate for leukopenia (WBC 2.9). FOLLOW-UP WITH PRIMARY CARE PROVIDER IN 1 TO 2 DAYS. TAKE MEDICATIONS DIRECTED HERE IN THE EMERGENCY ROOM. OKAY TO CONTINUE HOME MEDICATIONS UNLESS OTHERWISE DISCUSSED DURING YOUR VISIT IN THE EMERGENCY ROOM TODAY. RETURN TO YOUR NEAREST EMERGENCY ROOM IF SYMPTOMS WORSEN OR IF THERE IS NO IMPROVEMENT. CALL 911 IF YOU NEED IMMEDIATE ASSISTANCE. TAKE TYLENOL [id number] NEEDED AND IF NO CONTRAINDICATIONS ARE PRESENT. INCREASE ORAL HYDRATION. A WOUND CULTURE OR URINE CULTURE WAS ORDERED HERE IN THE EMERGENCY ROOM DEPARTMENT PLEASE FOLLOW-UP WITH PRIMARY CARE PROVIDER AND ADVISE THEM TO GET REPEAT PORTS FROM OUR FACILITY. IF YOU HAD ANY ELIESER WRAP/SPLINTS THAT WERE APPLIED HERE, PLEASE DO NOT REMOVE THEM UNTIL YOU SEE YOUR PRIMARY CARE OR SPECIALTY. Referrals: SELF,REFERRAL (PCP) Time of Disposition: 10:35 I have reviewed I have reviewed the case I WAS PRESENT AND PARTICIPATED IN THE CARE OF THIS PATIENT ALONGSIDE WITH THE RESIDENT PHYSICIAN. I HAVE REVIEWED AND PERSONALLY MADE AND APPROVED THE MANAGEMENT PLAN THAT IS DOCUMENTED IN THE NOTE BY MYSELF WITH THE RESIDENT PHYSICIAN. I ACKNOWLEDGED FOR RESPONSIBILITY FOR THE PATIENT'S MANAGEMENT PLAN. I have examined patient KOKI AMATO MD May 16, 2024 09:22 FLORENCIO DE LEÓN MD May 21, 2024 07:08
[2024-05-16 09:34] LABS: BASOPHILS # (AUTO) 0.03 K/uL (0.00-0.20); EOSINOPHILS # (AUTO) 0.14 K/uL (0.00-0.70); EOSINOPHILS % (AUTO) 4.8 % (0.0-8.0); HEMATOCRIT 39.9 % (36-48); IMMATURE GRANULOCYTE ABSOLUTE 0.01 K/uL (0-1); LYMPHOCYTES # (AUTO) 0.7 K/uL (1.0-4.8); LYMPHOCYTES % (AUTO) 23.9 % (21.0-51.0); MEAN CORPUSCULAR HEMOGLOBIN 30.9 pg (27.0-33.0); MEAN CORPUSCULAR HGB CONC 34.6 g/dL (32.0-36.0); MEAN CORPUSCULAR VOLUME 89.3 fL (79-99); MONOCYTES # (AUTO) 0.4 K/uL (0.1-1.0); MONOCYTES % (AUTO) 13.1 % (3.0-13.0); NEUTROPHILS # (AUTO) 1.6 K/uL (1.8-7.7); NEUTROPHILS % (AUTO) 56.9 % (40.0-77.0); PLATELET COUNT (AUTO) 230 K/uL (130-400); RED BLOOD CELL COUNT(AUTO) 4.47 MIL/uL (4.00-5.50); RED CELL DISTRIBUTION WIDTH 12.2 % (11.0-15.5); WHITE BLOOD COUNT (AUTO) 2.9 K/uL (4.8-10.8)
[2024-05-16] MEDS: ondanSETRON 4MG INJ IVP ONE (09:52)
[2024-05-16 09:58] LABS: CREATININE 0.7 mg/dL (0.5-1.0); POTASSIUM 3.7 mmol/L (3.5-5.1)
[2024-05-16 10:10] LABS: INFLUENZA TYPE A Negative For Type A (NEGATIVE); INFLUENZA TYPE B Negative For Type B (NEGATIVE)
[2024-05-16] MEDS ORDERED: AMOX1TAB16 PO (10:40)
[2024-05-16 10:45] LABS: COVID19 (SARS ANTIGEN RAPID) PRESUMPTIVE NEGATIVE (NEGATIVE)
[2024-05-16 11:05] VITALS: BP 120/75; PULSE 86; RESP 19; TEMP 98.9; O2SAT 98
[2024-05-16 11:28] LABS: BAND NEUTROPHILS % (MANUAL) 2 % (0-2); EOSINOPHILS % (MANUAL) 8 % (1-6); LYMPHOCYTES % (MANUAL) 21 % (22-44); MAN.DIFF COMMENT-IMPRESSION MANUAL DIFFERENTIAL; MONOCYTES % (MANUAL) 10 % (2-9); PLATELET MORPHOLOGY COMMENT ADEQUATE; SEGMENTED NEUTROPHILS % 59 % (40-70); TOTAL CELLS COUNTED 100
== END 2024-05-16 11:13 | disposition home or self-care (01) ==
LOC: EDH 08:46
DX: J32.9 Chronic sinusitis, unspecified (principal); H92.03 Otalgia, bilateral; I10 Essential (primary) hypertension; Z20.822 Contact with and (suspected) exposure to COVID-19
CPT/HCPCS: 99284; 96374; 96361; 96375; 87426; 80048; 85025; 87804 ×2; 36415; J1100; J7030; J2405

== ENCOUNTER 2024-07-07 21:24 | Emergency (ER) | payer OTHER ==
[~2024-07-07] VITALS: Ht 157.5 cm; Wt 117.5 kg
--- NOTE | 2024-07-07 21:32 | NUR ---
LMP 06/14/24
--- NOTE | 2024-07-07 22:11 | NUR ---
PENDING TEST & GFR RESULTS, IV SITE, & CONSENT FOR CTA EXAM.
[2024-07-07 22:24] LABS: BASOPHILS # (AUTO) 0.05 K/uL (0.00-0.20); BASOPHILS % (AUTO) 0.5 % (0.0-5.0); EOSINOPHILS # (AUTO) 0.25 K/uL (0.00-0.70); EOSINOPHILS % (AUTO) 2.7 % (0.0-8.0); HEMATOCRIT 38.2 % (36-48); IMMATURE GRANULOCYTE ABSOLUTE 0.02 K/uL (0-1); LYMPHOCYTES # (AUTO) 1.9 K/uL (1.0-4.8); LYMPHOCYTES % (AUTO) 21.2 % (21.0-51.0); MEAN CORPUSCULAR HEMOGLOBIN 30.7 pg (27.0-33.0); MEAN CORPUSCULAR VOLUME 90.3 fL (79-99); MONOCYTES # (AUTO) 0.4 K/uL (0.1-1.0); MONOCYTES % (AUTO) 4.5 % (3.0-13.0); NEUTROPHILS # (AUTO) 6.5 K/uL (1.8-7.7); NEUTROPHILS % (AUTO) 70.9 % (40.0-77.0); PLATELET COUNT (AUTO) 356 K/uL (130-400); RED BLOOD CELL COUNT(AUTO) 4.23 MIL/uL (4.00-5.50); RED CELL DISTRIBUTION WIDTH 12.8 % (11.0-15.5); WHITE BLOOD COUNT (AUTO) 9.2 K/uL (4.8-10.8)
[2024-07-07 22:32] LABS: CREATININE 0.7 mg/dL (0.5-1.0)
[2024-07-07] MEDS ORDERED: IOHEXOL-350 75 ML VIAL IV ONE (23:07)
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
[2024-07-07] MEDS: ketOROlac 15MG/ML VIAL (15MG/ML) IV ONE (23:46)
[2024-07-08] MEDS ORDERED: KETO10TA2 PO (00:17)
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
[2024-07-08 00:37] VITALS: BP 131/86; PULSE 89; RESP 18; TEMP 97.9; O2SAT 97
--- NOTE | 2024-07-08 08:59 | HMCIMG ---
Exam Type: KNEE 4+VWS LT Clinical Information: Injury Comparison: None Findings: The bone examination is unremarkable. No fractures or dislocations are seen. No radiopaque foreign bodies are noted. Soft tissues are preserved. IMPRESSION: Normal examination.
== END 2024-07-08 00:37 | disposition home or self-care (01) ==
LOC: EDH 21:24
DX: S10.91XA Abrasion of unspecified part of neck, initial encounter (principal); I10 Essential (primary) hypertension; R10.2 Pelvic and perineal pain; Z79.899 Other long term (current) drug therapy; Y04.0XXA Assault by unarmed brawl or fight, initial encounter; Y93.89 Activity, other specified; Y92.89 Other specified places as the place of occurrence of the external cause; Y99.8 Other external cause status
CPT/HCPCS: 99285; 96374; 70498; 80048; 84702; 85025; 36415; 73564; J1885; Q9967

== ENCOUNTER → 2024-08-23 | Outpatient (CLI) | payer OTHER ==
[~2024-08-23] MED LIST changes: +KETO10TA2 PO
== END | disposition home or self-care (01) ==
LOC: LAB 09:24
PROVIDERS: ATTEND Hospitalist
DX: Z11.52 Encounter for screening for COVID-19 (principal); Z20.822 Contact with and (suspected) exposure to COVID-19
CPT/HCPCS: 87426